=== PATIENT | male | born 1970 | race Caucasian/White ===

== ENCOUNTER 2018-10-01 09:58 | Emergency (ER) | payer MEDICAID ==
[~2018-10-01] VITALS: Ht 175.3 cm; Wt 88.0 kg
[2018-10-01 09:59] VITALS: BP 134/100
[2018-10-01] MEDS ORDERED: GABA-532 PO (10:24)
== END 2018-10-01 10:39 | disposition home or self-care (01) ==
LOC: ER 09:58
DX: F10.10 Alcohol abuse, uncomplicated (principal); Z02.89 Encounter for other administrative examinations; Z79.899 Other long term (current) drug therapy; Y90.9 Presence of alcohol in blood, level not specified
CPT/HCPCS: 99284